=== PATIENT | male | born 1990 | race Two or more races ===

== ENCOUNTER 2022-06-16 21:43 | Observation (INO) | payer OTHER ==
[2022-06-16 22:05] VITALS: RESP 20; BMI 25.3
[2022-06-16] MEDS ORDERED: SODIUM CHLORIDE 1,000 ML IV STA (22:24)
[2022-06-16] MEDS ORDERED: LIDOCAINE HCL 2% (20ML MULTI-DOSE VIAL) ONE (22:40)
[2022-06-16 22:47] LABS: BASO % 0.6 % (0-2.0); EOS % 2.1 % (0-4.5); HEMATOCRIT 42.9 % (35.4-49); HEMOGLOBIN 14.9 GM/dL (11.7-16.9); MCH 27.9 pg (25.7-33.7); MCHC 34.8 g/dl (32.0-35.9); MEAN CELL VOLUME 80.2 fl (80-96); MEAN PLT VOLUME 7.1 fl (7.5-11.1); MONO % 7.6 % (3.8-10.2); NEUT % 54.7 % (42.8-82.8); PLATELET COUNT 291 10^3/uL (134-434); RBC 5.35 M/mm3 (4.00-5.60); RDW 13.5 % (11.9-15.9); WHITE BLOOD COUNT 8.8 K/mm3 (4.0-10.0)
[2022-06-16 23:09] LABS: CALCIUM 8.9 mg/dL (8.5-10.1)
[2022-06-16 23:13] LABS: CREATININE 1.1 mg/dL (0.55-1.3)
[2022-06-16 23:15] LABS: BILIRUBIN,TOTAL 0.4 mg/dL (0.2-1); TOT PROT 7.4 g/dl (6.4-8.2)
[2022-06-16 23:18] LABS: EPI CELLS 4 /uL (0-25.1); HYALINE CASTS 2 /uL (0-3.1); PH,URINE 6.5 (5.0-8.0); URINE APPEARANCE CLEAR; URINE BACTERIA 2 /uL (0-1359); URINE BILIRUBIN NEGATIVE (NEGATIVE); URINE COLOR YELLOW; URINE GLUCOSE (UA) NEGATIVE (NEGATIVE); URINE KETONE TRACE (NEGATIVE); URINE LEUK ESTERASE NEGATIVE (NEGATIVE); URINE NITRITE NEGATIVE (NEGATIVE); URINE PROTEIN 1+ (NEGATIVE); URINE RBC 17 /uL (0-23.9); URINE UROBILINOGEN 0.2 mg/dL (0.2-1.0); URINE WBC 5 /uL (0-25.8)
[2022-06-16] MEDS ORDERED: LIDOCAINE HCL 2% (50ML VIAL) SQ ONE (23:58)
[2022-06-17 09:19] VITALS: BP 124/86; PULSE 81; TEMP 98.9
== END 2022-06-17 09:45 | disposition left against medical advice (07) ==
LOC: JER 21:43 → JERBED 23:58
PROVIDERS: ADMIT Internal Medicine; ATTEND Internal Medicine
PROC: 0HQ4XZZ Repair Neck Skin, External Approach (ICD-10-PCS; principal; 2022-06-16)
PROC: 3E0337Z Introduction of Electrolytic and Water Balance Substance into Peripheral Vein, Percutaneous Approach (ICD-10-PCS; 2022-06-16)
DX: R55 Syncope and collapse (principal); R42 Dizziness and giddiness; S11.91XA Laceration without foreign body of unspecified part of neck, initial encounter; W18.39XA Other fall on same level, initial encounter; Y93.E1 Activity, personal bathing and showering; Y92.002 Bathroom of unspecified non-institutional (private) residence as the place of occurrence of the external cause
CPT/HCPCS: 12001; 96360; G0168; 0241U-QW; 36415; 70450-TC; 70486-TC; 71046-TC-FY; 72125-TC; 80053; 81003; 82550; 82962; 84484; 85025; 86850; 86900; 86901; 87086; 93005; 93010; 99285-25; G0378